=== PATIENT | female | born 1955 | race American Indian/Alaskan Native ===

== ENCOUNTER 2021-05-02 04:35 | Emergency (ER) | payer MEDICARE ==
[2021-05-02 07:33] LABS: Basophils % (Auto) 0.8 % (0.0-1.8); Hematocrit 39.1 % (30.3-42.9); Hemoglobin 13.3 gm/dl (10.1-14.3); Lymphocytes # (Auto) 1.6 K/mm3 (1.2-5.4); Lymphocytes % (Auto) 41.6 % (13.4-35.0); Mean Corpuscular HGB Conc 34 % (30-34); Mean Corpuscular Volume 95 fl (79-97); Monocytes # (Auto) 0.2 K/mm3 (0.0-0.8); Monocytes % (Auto) 4.8 % (0.0-7.3); Platelet Count 130 K/mm3 (140-440); Red Blood Count 4.14 M/mm3 (3.65-5.03); Red Cell Distribution Width 15.6 % (13.2-15.2)
[2021-05-02 07:58] LABS: BUN/Creatinine Ratio 6; Blood Urea Nitrogen 5 mg/dL (7-17); Calcium 9.3 mg/dL (8.4-10.2); Hemolysis Index 2
[2021-05-02] MEDS ORDERED: POTASSIUM CHLORIDE ER 20 MEQ TAB PO ONE (08:13)
--- NOTE | 2021-05-02 17:42 | Emergency Department Report ---
ED General Adult HPI - General Chief complaint: Medical Clearance Stated complaint: medical clearance PUI?: No Time Seen by Provider: 05/02/21 17:27 Source: patient, RN notes reviewed Mode of arrival: Ambulatory Limitations: No Limitations - History of Present Illness Initial comments: The patient was evaluated in the emergency department for symptoms described in the history of present illness. He/she was evaluated in the context of the global COVID-19 pandemic, which necessitated consideration that the patient might be at risk for infection with the virus that causes COVID-19. Institutional protocols and algorithms that pertain to the evaluation of patients at risk for COVID-19 are in a state of rapid change based on information released by regulatory bodies including the CDC and federal and state organizations. These policies and algorithms were followed during the patient's care in the emergency department. Please note that these policies, procedures and recommendations changed on a rapid basis. Past medical history: Hypertension, alcoholism, pancreatitis, psychiatric disease The patient is a 65-year-old female, who presents to the ER today with a request for medical clearance for detox. The patient reports that she has been a chronic alcoholic for years, and she goes through intermittent stages of binging. Her last alcohol binge ended 4 days ago, and she states she is motivated to participate in detox. The patient states that when she binges on alcohol, she does not take her prescription medications, which include clonidine, Seroquel, pancreas enzyme supplementation, and potassium. The patient denies physical pain. She is not homicidal suicidal. She does not feel like she is having the shakes at this time. She reports that she is got her COVID-19 vaccination. She denies Covid symptomatology. She denies urinary symptoms. She states that she feels like she is at her baseline at this time physically, and would like to be medically cleared so she can participate in outpatient detox. No history of withdrawal seizures that she is aware of. Severity scale (0 -10): 0 Improves with: none Worsens with: none Associated Symptoms: denies other symptoms - Related Data Previous Rx's Medication Instructions Recorded Last Taken Type Multivitamin with Folic Acid [[facility] 400 mcg PO QDAY #30 tablet 05/02/21 Unknown Rx One Daily Essential Tablet] Potassium Chloride [K-Dur] 20 meq PO BID #60 tab 05/02/21 Unknown Rx chlordiazePOXIDE [Librium] 25 mg PO Q6H PRN #25 capsule 05/02/21 Unknown Rx Allergies Allergy/AdvReac Type Severity Reaction Status Date / Time No Known Allergies Allergy Unverified 05/02/21 18:13 ED Review of Systems ROS: Stated complaint: DETOX Other details as noted in HPI Comment: All other systems reviewed and negative ED Past Medical Hx - Past Medical History Previous Medical History?: Yes Hx Diabetes: Yes - Surgical History Past Surgical History?: Yes Additional Surgical History: left wrist - Social History Smoking Status: Former Smoker Substance Use Type: Alcohol - Medications Home Medications: Home Medications Medication Instructions Recorded Confirmed Last Taken Type Multivitamin with Folic Acid [[facility] 400 mcg PO QDAY #30 tablet 05/02/21 Unknown Rx One Daily Essential Tablet] Potassium Chloride [K-Dur] 20 meq PO BID #60 tab 05/02/21 Unknown Rx chlordiazePOXIDE [Librium] 25 mg PO Q6H PRN #25 capsule 05/02/21 Unknown Rx ED Physical Exam - General Limitations: No Limitations General appearance: alert, in no apparent distress - Head Head exam: Present: atraumatic, normocephalic - Eye Eye exam: Present: normal appearance, PERRL, EOMI, other (Visual acuity intact to finger counting, color perception, reading at a close distance). Absent: nystagmus - ENT ENT exam: Present: normal exam, normal orophraynx, mucous membranes moist, normal external ear exam - Neck Neck exam: Present: normal inspection, full ROM. Absent: tenderness, meningismus - Respiratory Respiratory exam: Present: normal lung sounds bilaterally. Absent: respiratory distress, wheezes, rales, rhonchi, stridor, decreased breath sounds - Cardiovascular Cardiovascular Exam: Present: regular rate, normal rhythm, normal heart sounds. Absent: bradycardia, tachycardia, irregular rhythm, systolic murmur, diastolic murmur, rubs, gallop - GI/Abdominal GI/Abdominal exam: Present: soft. Absent: distended, tenderness, guarding, rebound, rigid, pulsatile mass - Extremities Exam Extremities exam: Present: normal inspection, full ROM, other (2+ pulses noted in the bilateral upper and lower extremities. There is no palpable cord. negative Homans sign. Muscular compartments are soft. The pelvis is stable.). Absent: pedal edema, calf tenderness - Back Exam Back exam: Present: normal inspection, full ROM. Absent: tenderness, CVA tenderness (R), CVA tenderness (L), paraspinal tenderness, vertebral tenderness - Neurological Exam Neurological exam: Present: alert, oriented X3, normal gait, other (No facial droop. Tongue midline. Extraocular movements intact bilaterally. Facial sensation intact to light touch in V1, V2, V3 distribution bilaterally. 5 and a 5 strength in 4 extremities. Sensation intact to light touch in 4 extremities.). Absent: motor sensory deficit - Psychiatric Psychiatric exam: Absent: anxious, homicidal ideation, suicidal ideation - Skin Skin exam: Present: warm, dry, intact, normal color, other (Tongue fasciculations not noted). Absent: rash ED Course Vital Signs 05/02/21 05/02/21 05/02/21 05:06 14:37 18:13 Temperature 98.9 F 98.4 F Pulse Rate 90 92 H Respiratory 16 18 Rate Blood Pressure Blood Pressure 127/89 151/89 [Right] O2 Sat by Pulse 98 99 97 Oximetry 05/02/21 05/02/21 05/02/21 18:37 18:46 19:00 Temperature Pulse Rate 83 92 H Respiratory 18 15 Rate Blood Pressure 159/93 149/95 Blood Pressure [Right] O2 Sat by Pulse 98 98 98 Oximetry ED Medical Decision Making - Lab Data Result diagrams: 05/02/21 05:46 05/02/21 05:46 Vital Signs 05/02/21 05/02/21 05/02/21 05:06 14:37 18:13 Temperature 98.9 F 98.4 F Pulse Rate 90 92 H Respiratory 16 18 Rate Blood Pressure Blood Pressure 127/89 151/89 [Right] O2 Sat by Pulse 98 99 97 Oximetry 05/02/21 05/02/21 05/02/21 18:37 18:46 19:00 Temperature Pulse Rate 83 92 H Respiratory 18 15 Rate Blood Pressure 159/93 149/95 Blood Pressure [Right] O2 Sat by Pulse 98 98 98 Oximetry Lab Results 05/02/21 05/02/21 05/02/21 Range/Units 05:46 05:46 05:46 WBC (4.5-11.0) K/mm3 RBC (3.65-5.03) M/mm3 Hgb (10.1-14.3) gm/dl Hct (30.3-42.9) % MCV (79-97) fl MCH (28-32) pg MCHC (30-34) % RDW (13.2-15.2) % Plt Count (140-440) K/mm3 Lymph % (Auto) (13.4-35.0) % Fleming % (Auto) (0.0-7.3) % Eos % (Auto) (0.0-4.3) % Baso % (Auto) (0.0-1.8) % Lymph # (Auto) (1.2-5.4) K/mm3 Fleming # (Auto) (0.0-0.8) K/mm3 Eos # (Auto) (0.0-0.4) K/mm3 Baso # (Auto) (0.0-0.1) K/mm3 Seg Neutrophils % (40.0-70.0) % Seg Neutrophils # (1.8-7.7) K/mm3 Sodium 139 (137-145) mmol/L Potassium 2.9 L* (3.6-5.0) mmol/L Chloride 91.6 L (98-107) mmol/L Carbon Dioxide 32 H (22-30) mmol/L Anion Gap 18 mmol/L BUN 5 L (7-17) mg/dL Creatinine 0.8 (0.6-1.2) mg/dL Estimated GFR > 60 ml/min BUN/Creatinine Ratio 6 % Glucose 167 H (65-100) mg/dL Calcium 9.3 (8.4-10.2) mg/dL Magnesium (1.7-2.3) mg/dL Salicylates < 0.3 L (2.8-20.0) mg/dL Acetaminophen 5.0 L (10.0-30.0) ug/mL Plasma/Serum Alcohol (0-0.07) % 05/02/21 05/02/21 05/02/21 Range/Units 05:46 05:46 05:46 WBC 3.7 L (4.5-11.0) K/mm3 RBC 4.14 (3.65-5.03) M/mm3 Hgb 13.3 (10.1-14.3) gm/dl Hct 39.1 (30.3-42.9) % MCV 95 (79-97) fl MCH 32 (28-32) pg MCHC 34 (30-34) % RDW 15.6 H (13.2-15.2) % Plt Count 130 L (140-440) K/mm3 Lymph % (Auto) 41.6 H (13.4-35.0) % Fleming % (Auto) 4.8 (0.0-7.3) % Eos % (Auto) 1.0 (0.0-4.3) % Baso % (Auto) 0.8 (0.0-1.8) % Lymph # (Auto) 1.6 (1.2-5.4) K/mm3 Fleming # (Auto) 0.2 (0.0-0.8) K/mm3 Eos # (Auto) 0.0 (0.0-0.4) K/mm3 Baso # (Auto) 0.0 (0.0-0.1) K/mm3 Seg Neutrophils % 51.8 (40.0-70.0) % Seg Neutrophils # 1.9 (1.8-7.7) K/mm3 Sodium (137-145) mmol/L Potassium (3.6-5.0) mmol/L Chloride (98-107) mmol/L Carbon Dioxide (22-30) mmol/L Anion Gap mmol/L BUN (7-17) mg/dL Creatinine (0.6-1.2) mg/dL Estimated GFR ml/min BUN/Creatinine Ratio % Glucose (65-100) mg/dL Calcium (8.4-10.2) mg/dL Magnesium 1.70 (1.7-2.3) mg/dL Salicylates (2.8-20.0) mg/dL Acetaminophen (10.0-30.0) ug/mL Plasma/Serum Alcohol 0.06 (0-0.07) % - Medical Decision Making Differential diagnosis, including but not limited to: Encounter for medical screening examination, electrolyte derangement, alcohol dependence, medical c learance for psychiatric placement Assessment and plan: 65-year-old female, who is afebrile, with reassuring vital signs, clinically sober, with a GCS of 15, who is not tachycardic, without tremors, without tongue fasciculations, without hyperreflexia, who is awake, alert, oriented, and exhibits decision-making capacity, without acute medical complaint, with a request for clearance for detox. She states that she has chronic hypokalemia, and has a prescription and bottle of potassium supplementation on her. She will be given oral and intravenous potassium here in the emergency room, and she will be given a banana bag. This patient has been observed in this department for hours without clinical decompensation. She does not meet criteria for 1013 hold, or involuntary hold. She has received her COVID-19 vaccination. She does not appear to be in active withdrawal at this time. Discharged with multivitamin, potassium supplementation, Librium as needed, at this point time, no emergent medical or psychiatric condition appears to be present. Critical care attestation.: If time is entered above; I have spent that time in minutes in the direct care of this critically ill patient, excluding procedure time. ED Disposition Clinical Impression: Hypokalemia, Alcohol dependence, Encounter for medical screening examination Disposition: TO HOME OR SELFCARE Is pt being admited?: No Condition: Good Instructions: Hypokalemia, Alcohol Abuse and Dependence Information, Adult Additional Instructions: At this point in time, the patient does not appear to have an immediate medical contraindication to alcohol detox and rehabilitation. Patient should take a multivitamin with folic acid/thiamine on a daily basis, take the Librium as needed for sensation of alcohol withdrawal, tremors and shakes, and potassium supplementation twice daily, as directed. Recommend follow-up with your primary care doctor within 3 to 7 days for repeat laboratory testing, specifically to recheck patient's potassium level, which was found to be low today in the emergency room. Recommend that patient avoid consumption of alcohol, tobacco, smoke products, heavy and spicy foods. Please return to the emergency room right away with new pain, worsened pain, migration of pain, projectile vomiting, change in mental status, confusion, inability to tolerate liquid feeds, tremors, shaking, seizure, change in mental status, or any new, worsened or different symptoms not present on the initial emergency room evaluation. Referrals: JONNY PATTERSON [Primary Care Provider] - 7-10 days
[2021-05-02] MEDS ORDERED: THIAMINE 100 MG, FOLIC ACID 1 MG, MULTIPLE VITAMIN INJ, ADULT 10 ML in SODIUM CHLORIDE ... IV ONE (18:00)
[2021-05-02] MEDS: POTASSIUM CHLORIDE 10 MEQ 10 MEQ/100 ML BAG IV SCH ×4 (18:55→23:15)
[2021-05-03 00:21] VITALS: BP 152/87
== END 2021-05-03 00:30 | disposition home or self-care (01) ==
LOC: ED 04:35
DX: E87.6 Hypokalemia (principal); F10.20 Alcohol dependence, uncomplicated; Z13.9 Encounter for screening, unspecified; E11.8 Type 2 diabetes mellitus with unspecified complications; Z98.890 Other specified postprocedural states; Z87.891 Personal history of nicotine dependence
CPT/HCPCS: 36415; 80048; 83735; 85025; 96365; 96366; 96368; 99284; J3411; J3480; J7030; 80320; G0480